=== PATIENT | male | born 1935 | race Caucasian/White ===

== ENCOUNTER 2017-04-06 10:55 | Day surgery (SDC) | payer MEDICARE ==
[~2017-04-06] VITALS: Ht 177.8 cm; Wt 90.2 kg
[~2017-04-06 10:55] MED LIST: ASPI325T6 PO; ASPIRIN 32325 MG/TAB PO; ASPIRIN 81M81 MG/TA2 PO; ASPIRIN E.C. 8181 MG PO; AVAPRO TAB150 MG/TAB PO; CEPHALEXIN500 M1 PO; CIPRO 500MG TA500 MG PO; DIOVAN 160MG160 MG PO; DIOVAN320 MG PO; DULCOLAX S10 MG/SUPP RC; EPA FISH OIL1000 MG PO; FLOMAX 0.40.4 MG/CAP PO; FUROSEMIDE40 MG PO; IRON325 MG PO; LIPITOR 40MG TA40 MG PO; LIPITOR40 MG PO; METFORMIN ER500 MG PO; MILK OF MA400 MG/52 PO; MIRALAX PA17 GM/Dose PO; NORCO 325 MG-51 TAB PO; NOVLOG SQ; PROSCAR 5MG5 MG PO; PYRIDIUM 100MG100 MG PO; SENOKOT S 50 MG1 TAB PO; SLO-NIACIN750 MG PO; TOPROL XL 25MG25 MG PO; TOPROL XL50 MG PO; TYLENOL 325MG325 MG PO; VITAMIN D31000 IU PO
[2017-04-06 12:11] VITALS: BP 149/87; PULSE 66; TEMP 98.5
[2017-04-06] MEDS ORDERED: LASIX 40MG TABL40 MG PO (12:18)
[2017-04-06] MEDS ORDERED: NEURONTIN100 MG/CAP PO (12:19)
[2017-04-06] MEDS ORDERED: VITAMIN D31000 I1 PO (12:20)
[2017-04-06] MEDS ORDERED: VITAMIND3 5000 PO (12:21)
[2017-04-06] MEDS ORDERED: SENOKOT S 50 MG1 TAB PO (12:22)
[2017-04-06 14:15] VITALS: BP 142/69; PULSE 78; TEMP 97.7
[2017-04-06 14:30] VITALS: BP 144/63; PULSE 62
[2017-04-06 14:36] VITALS: BP 148/80; PULSE 67
[2017-04-06] MEDS ORDERED: NORCO 325 MG-51 TAB PO (14:39)
== END 2017-04-06 14:58 | disposition home or self-care (01) ==
LOC: SDCO 10:55
DX: C60.1 Malignant neoplasm of glans penis (principal); I25.10 Atherosclerotic heart disease of native coronary artery without angina pectoris; E11.9 Type 2 diabetes mellitus without complications; E78.5 Hyperlipidemia, unspecified; I10 Essential (primary) hypertension; I48.91 Unspecified atrial fibrillation; Z95.0 Presence of cardiac pacemaker; F17.210 Nicotine dependence, cigarettes, uncomplicated; Z82.49 Family history of ischemic heart disease and other diseases of the circulatory system; Z83.3 Family history of diabetes mellitus; Z80.9 Family history of malignant neoplasm, unspecified; Z98.1 Arthrodesis status; Z86.79 Personal history of other diseases of the circulatory system; Z85.46 Personal history of malignant neoplasm of prostate; Z90.49 Acquired absence of other specified parts of digestive tract
CPT/HCPCS: J0690; J1100; J2405; J2704; J3010; J7030

== ENCOUNTER → 2018-09-26 | Outpatient (REF) ==
[~2018-09-26] MED LIST changes: +LASIX 40MG TABL40 MG PO; +NEURONTIN100 MG/CAP PO; +VITAMIN D31000 I1 PO; +VITAMIND3 5000 PO
== END ==
LOC: ZMSC 17:17
DX: Z01.89 Encounter for other specified special examinations (principal)

== ENCOUNTER 2018-10-04 10:34 | Inpatient (IN) | payer MEDICARE ==
[~2018-10-04] VITALS: Ht 177.8 cm; Wt 95.0 kg
[2018-10-04] VITALS (11 sets, daily range): BP systolic 97–139; BP diastolic 46–73; PULSE 67–92; TEMP 98.3–98.8
[~2018-10-04 10:34] MED LIST changes: +GLUCOPHAGE XR500 M1 PO; -METFORMIN ER500 MG PO
[2018-10-04 12:01] LABS: BASO % 0.3 % (0.0-2.0); EOS % 0.1 % (0-4.0); GRAN # 8.1 (1.4-6.5); GRAN % 77.8 % (42.2-75.2); LYMPH # 1.6 (1.2-3.4); LYMPH % 14.9 % (20.0-51.0); MEAN CELL VOLUME 93 fl (80.0-100.0); MEAN CORPUSCULAR HGB CONC 33 g/dl (33.0-37.0); MEAN PLATELET VOLUME 10.7 fl (7.4-10.4); MONO # 0.6 (0.1-0.6); MONO % 5.7 % (1.7-9.3); PLATELET COUNT 239 K/mm3 (130-400); REDCELL DISTRIBUTION WIDTH-CV 13.7 % (11.5-14.5)
[2018-10-04 12:02] LABS: HEMATOCRIT 19.6 % (42.0-52.0); MEAN CORPUSCULAR HEMOGLOBIN 30 pg (27.0-31.0)
[2018-10-04 12:03] LABS: CALCIUM 8.4 mg/dL (8.4-10.2); CREATININE, serum 1.49 mg/dL (0.66-1.25); POTASSIUM 4.9 mmol/L (3.4-5.0)
[2018-10-04 12:05] LABS: HEMOGLOBIN 6.4 g/dl (13.5-18.0)
--- NOTE | 2018-10-04 12:05 | NUR ---
Dr Castrejon notified of Hgb 6.4.
--- NOTE | 2018-10-04 12:19 | NUR ---
Dr Ludwig notified of consult.
[2018-10-04] MEDS ORDERED: ATACAND 16M16 MG/TAB PO (13:42)
[2018-10-04] MEDS ORDERED: MIRALAX PA17 GM/Dose PO ×2 (13:42→13:43)
[2018-10-04] MEDS ORDERED: MYRBETR50MG PO (13:42)
--- NOTE | 2018-10-04 14:00 | NUR ---
Patient alert and oriented, answers questions appropriately. See assessment. Perirectal abscess draining yellow drainage. PRBC infusing. No other c/o at this time.
--- NOTE | 2018-10-04 18:00 | NUR ---
Patient returns from procedure. Assessment unchanged except gauze and ABD to perirectal abscess. No c/o at this time.
--- NOTE | 2018-10-04 21:00 | NUR ---
Patient in bed, asking to stand at bedside to try to urinate. Is incontinent of urine continuously and at times can void small amounts. Noted LLQ incision dry, no dressing has incision to perineum, gauze has been replaced many times due to being urine soaked. Neither incisions have any bleeding. IV site to right AC with LR infusing at 100cc/hr. Has bilateral lower extremity pitting edema. Is alert and oriented x4. Denies pain. S.O at bedside.
[2018-10-05] VITALS (24 sets, daily range): BP systolic 70–153; BP diastolic 42–107; PULSE 60–102; TEMP 97.5–99.1
--- NOTE | 2018-10-05 00:30 | NUR ---
Patient resting in bed with eyes closed, passing flatus with significant GI bleed odor, checked depends for stool, none noted at this time.
--- NOTE | 2018-10-05 01:10 | NUR ---
Was in rechecking patients B/P and found B/P to be 70/42 P=102 patient easily awakened and turned to back. Recheck of B/P found 87/48 p=90 r=20. Random BS check for reading of 244mg/dl. B/P readings were on left arm. Rechecked B/P at 0125 found to have reading of 82/49 p=90. Notified Dr Castrejon at 0125 of above findings. New order for STAT H&H. Transfuse 1 unit of PRBC's if HGB<8.0. May bolus 1 liter of NS for continued low B/P and if Hgb >8.0. Patient awakens easily and reports feeling "okay". Skin is cool to touch, warm blanket applied.
[2018-10-05 01:52] LABS: HEMOGLOBIN 5.7 g/dl (13.5-18.0)
[2018-10-05 01:53] LABS: HEMATOCRIT 17.4 % (42.0-52.0)
--- NOTE | 2018-10-05 02:00 | NUR ---
Notified Dr Castrejon of patients Hgb=5.7 Hct=17.4. New order to transfuse 2 units of PRBC's now.
--- NOTE | 2018-10-05 03:25 | NUR ---
Initiated first of 2 units of PRBC's at this time. [id number] infusing to right AC site without redness of swelling. Has a second site to left hand, #20 SL'd.
--- NOTE | 2018-10-05 04:00 | NUR ---
Patient tolerating transfusion without complaint of shortness of breath or elevated temperature.
--- NOTE | 2018-10-05 05:00 | NUR ---
Patient more alert at this time. Skin is no longer cool or damp to touch. 1st unit of PRBC's almost complete.
--- NOTE | 2018-10-05 05:37 | NUR ---
Second unit of PRBC's infusing [id number] to Right AC site without redness or swelling. B/P improved.
[2018-10-05 07:55] LABS: CALCIUM 7.4 mg/dL (8.4-10.2); CREATININE, serum 1.15 mg/dL (0.66-1.25); POTASSIUM 4.6 mmol/L (3.4-5.0)
--- NOTE | 2018-10-05 08:00 | NUR ---
Ale Castrejon and Vani here to see patient. See orders.
--- NOTE | 2018-10-05 08:30 | NUR ---
Patient assessment completed, patient is A&O x4. Diminished sounds in BL lungs. +2 pitting edema in BLE. Patient has no complaints of pain at this time and is preparing to be taken for an EGD.
--- NOTE | 2018-10-05 12:56 | NUR ---
Labs drawn from PICC per protocol.
--- NOTE | 2018-10-05 13:05 | NUR ---
SW met with patient and family about discharge planning. Patient lives independently at home with his . Patient's PCP is Dr Savage and he obtains prescriptions from [facility]. Patient does not use any DME or home health services. Patient does have a DPOA and a copy is in the EMR. SW does not anticipate any discharge needs.
[2018-10-05 13:06] LABS: MEAN CELL VOLUME 91 fl (80.0-100.0); MEAN CORPUSCULAR HGB CONC 34 g/dl (33.0-37.0); MEAN PLATELET VOLUME 10.2 fl (7.4-10.4); PLATELET COUNT 153 K/mm3 (130-400); RED BLOOD COUNT 2.12 M/mm3 (4.20-5.60)
[2018-10-05 13:09] LABS: HEMATOCRIT 19.3 % (42.0-52.0); HEMOGLOBIN 6.5 g/dl (13.5-18.0); MEAN CORPUSCULAR HEMOGLOBIN 31 pg (27.0-31.0)
--- NOTE | 2018-10-05 13:17 | NUR ---
Patient resting in bed with at bedside after returning from EGD this morning. PICC line was placed in R upper arm. Patient continues to be incontinent of urine and passed a small amount of dark red stool. Patient progressed to clear liquid diet and tolerated beef broth well with no complaints of nausea or pain. No further needs at this time. Call light within reach.
[2018-10-05 19:11] LABS: BASO % 0.4 % (0.0-2.0); EOS % 0.3 % (0-4.0); GRAN # 7.3 (1.4-6.5); GRAN % 71.3 % (42.2-75.2); LYMPH # 1.5 (1.2-3.4); MEAN CELL VOLUME 92 fl (80.0-100.0); MEAN CORPUSCULAR HGB CONC 34 g/dl (33.0-37.0); MEAN PLATELET VOLUME 10.9 fl (7.4-10.4); MONO # 0.9 (0.1-0.6); MONO % 9.1 % (1.7-9.3); PLATELET COUNT 161 K/mm3 (130-400); RED BLOOD COUNT 1.99 M/mm3 (4.20-5.60); REDCELL DISTRIBUTION WIDTH-CV 15.3 % (11.5-14.5)
[2018-10-05 19:18] LABS: HEMATOCRIT 18.2 % (42.0-52.0); HEMOGLOBIN 6.1 g/dl (13.5-18.0); MEAN CORPUSCULAR HEMOGLOBIN 31 pg (27.0-31.0)
--- NOTE | 2018-10-05 23:08 | NUR ---
Patient incontinent of large dark red stool, devendra cares provided, also inc. of urine. New pad and depends on. Started blood transfusion of single unit of blood to be given tonight. [id number] infusing to right PICC without redness or swelling. Patient is alert and oriented x4. Skin pink, warm and dry. Bilateral lower extremity edema 1+. Lungs are clear bilaterally. Incisions to left lower abd. and perineum dry without drainage. SL to left hand flushed, no redness or swelling noted.
[2018-10-06] VITALS (22 sets, daily range): BP systolic 83–144; BP diastolic 43–65; PULSE 61–82; TEMP 97.3–98.3
--- NOTE | 2018-10-06 01:35 | NUR ---
Transfusion complete. Has small incontinent black stool. Miranda care provided. Sutures to perineum intact.
[2018-10-06 05:20] LABS: HEMATOCRIT 19.3 % (42.0-52.0); HEMOGLOBIN 6.6 g/dl (13.5-18.0)
--- NOTE | 2018-10-06 06:18 | NUR ---
Notified Dr Gottlieb of patients Hgb=6.6 Hct=19.3, new order for 2 units PRBC's to be given.
--- NOTE | 2018-10-06 11:01 | NUR ---
Visited and listened to the families concerns and provided spiritual care.
[2018-10-06 16:28] LABS: HEMATOCRIT 24.7 % (42.0-52.0); HEMOGLOBIN 8.1 g/dl (13.5-18.0)
--- NOTE | 2018-10-06 18:00 | NUR ---
No complaints. Received two units of blood this shift. VSS. Denied dizziness when out of bed with assistance. Appetite good.
[2018-10-06 20:40] LABS: HEMATOCRIT 24.6 % (42.0-52.0); HEMOGLOBIN 8.1 g/dl (13.5-18.0)
--- NOTE | 2018-10-06 22:35 | NUR ---
Completed medication administration and assessment; PT tolerated all cares, toileting, and medications well; PT A&O, BS active x4, LCTA throughout, and able to AMB with SBA; PT denies pain or discomfort at time of assessment; PT denies further needs post toileting and cleansing; PT assisted to a comfortable position in bed with call light within reach; Will continue to monitor. CDA
[2018-10-07 04:12] VITALS: BP 133/51; PULSE 78; TEMP 97.8
--- NOTE | 2018-10-07 06:19 | NUR ---
PT resting well in bed with HOB at 15; PT denies further needs or acute changes at time of rounds; Central line to OYAN with dual lumen accessing and flushing well; All ABX tolerated well; fluids held r/t INT; PT remains in a comfortable position with call light in reach. CDA
[2018-10-07 06:24] LABS: HEMATOCRIT 25.4 % (42.0-52.0); HEMOGLOBIN 8.4 g/dl (13.5-18.0)
--- NOTE | 2018-10-07 06:45 | NUR ---
Report given to BENI Kunz. CDA
[2018-10-07 09:24] VITALS: BP 141/58; PULSE 70; TEMP 97.7
[2018-10-07 13:39] VITALS: BP 133/48; PULSE 70; TEMP 97.9
[2018-10-07 16:32] VITALS: BP 123/43; PULSE 62; TEMP 97.3
--- NOTE | 2018-10-07 18:30 | NUR ---
Stated feels a lot better today. Appetite good. Ambulated in room and halls with standby assist. Tolerated activity well. Had some dark blood in stools.
--- NOTE | 2018-10-07 20:30 | NUR ---
Initial shift assessment done- denies pain- Up walking in room on own- steady on feet- states he is going home tomorrow if hgb is stable- did have a very small black stool earlier this evening-
[2018-10-07 20:43] VITALS: BP 137/46; PULSE 64; TEMP 98.2
[2018-10-07 23:51] VITALS: BP 147/50; PULSE 75; TEMP 98.5
[2018-10-08] VITALS (8 sets, daily range): BP systolic 123–146; BP diastolic 52–72; PULSE 67–75; TEMP 97.2–98.1
--- NOTE | 2018-10-08 06:12 | NUR ---
Quiet night- VSS, no requests at this time
[2018-10-08 06:33] LABS: HEMATOCRIT 23.2 % (42.0-52.0); HEMOGLOBIN 7.5 g/dl (13.5-18.0)
--- NOTE | 2018-10-08 08:27 | NUR ---
Patient alert and oriented, answers questions appropriately. See assessment. LLQ and perirectal incisions with edges well approximated, no redness or drainage noted. VSS. Hemoglobin 7.5 today. Ale Moya and Lucía notified. No other c/o at this time.
--- NOTE | 2018-10-08 13:21 | NUR ---
SW checked with Nurse about patients ambulatory status. Patient is getting around using his cane and is doing well. SW will continue to follow.
[2018-10-08 14:11] LABS: HEMATOCRIT 28.8 % (42.0-52.0); HEMOGLOBIN 9.7 g/dl (13.5-18.0)
--- NOTE | 2018-10-08 23:38 | NUR ---
Shift assessment complete. Patient lying in bed. Denies pain. RUE dbl lumen PICC flushed with 10ml NS, each lumen, per protocol. Patient tolerated well. at bedside.
[2018-10-09 00:09] VITALS: BP 119/57; PULSE 80; TEMP 97.9
[2018-10-09 04:03] VITALS: BP 118/56; PULSE 75; TEMP 98.7
--- NOTE | 2018-10-09 04:03 | NUR ---
Patient in bed, awake for VS. Denies pain. Will continue to monitor.
--- NOTE | 2018-10-09 05:10 | NUR ---
Labs drawn from right PICC line per protocol. Flushed with 20ml NS in red lumen. Patient ambulated to BR with cane and assist x1. Denies pain. at bedside.
--- NOTE | 2018-10-09 07:02 | NUR ---
report from Ludy BAZAN.
[2018-10-09 07:05] LABS: HEMATOCRIT 25.1 % (42.0-52.0); HEMOGLOBIN 8.1 g/dl (13.5-18.0)
[2018-10-09 07:55] VITALS: BP 141/66; PULSE 67; TEMP 97.9
--- NOTE | 2018-10-09 09:15 | NUR ---
DR. SPEARS HERE TODAY. SEE COMPUTER FOR NEW ORDERS.
[2018-10-09 12:17] VITALS: BP 130/57; PULSE 70; TEMP 97.9
[2018-10-09 16:30] VITALS: BP 134/67; PULSE 71; TEMP 97.5
[2018-10-09 19:42] VITALS: BP 132/77; PULSE 72; TEMP 98.1
--- NOTE | 2018-10-09 21:00 | NUR ---
Patient awake, alert and oriented x4. Walked in hallway with spouse Michelle. Denies pain to abdomen. Reports no black stools today. Has a Right PICC that flushes well both lumens. Lungs clear bilaterally. Has healing incision to left abdomen and sutured incision to perineum. Remains incontinent of urine per his normal. Has lower extremity edema, with 1+pitting on the left leg. No requests at this time.
[2018-10-10 03:20] VITALS: BP 124/45; PULSE 71; TEMP 98.4
--- NOTE | 2018-10-10 05:00 | NUR ---
Lab drawn from right PICC. Patient voices no concerns at this time.
[2018-10-10 06:15] LABS: HEMATOCRIT 25.4 % (42.0-52.0); HEMOGLOBIN 8.3 g/dl (13.5-18.0)
--- NOTE | 2018-10-10 06:26 | NUR ---
Patient has had no black stools this shift. Reports resting well. Takes AM med without problem.
--- NOTE | 2018-10-10 07:24 | NUR ---
REPORT FROM NING BAZAN.
[2018-10-10 07:52] VITALS: BP 135/74; PULSE 75; TEMP 97.8
[2018-10-10] MEDS ORDERED: PROTONIX 40MG T40 MG PO (08:42)
--- NOTE | 2018-10-10 10:41 | NUR ---
DR SPEARS IN TO SEE PATIENT PLAN ON DISCHARGE LATER TODAY IF OK WITH DR. RODRIGES. PATEINT INDEPENDENT IN ROOM
[2018-10-10 12:15] VITALS: BP 153/61; PULSE 72; TEMP 97.7
--- NOTE | 2018-10-10 12:49 | NUR ---
SW met with patient and to present IM and verbally discuss the contents. Patient was agreeable and signed the form. Copy provided and original in the chart. Patient is dc home today with spouse, no unmet discharge needs.
--- NOTE | 2018-10-10 13:42 | NUR ---
DISCHARGE INSTRUCTIONS PROVIDED TO PATIENT AND SPOUSE. CALLED PRESCRIPTION TO [facility] IN [place]. PT TAKEN TO FRON BY WHEEL CHAIR BY STAFF.
== END 2018-10-10 13:43 | disposition home or self-care (01) | DRG 908 ==
LOC: SURG 10:34
PROVIDERS: Surgery; ADMIT Urology
PROC: 0WQ Anatomical Regions, General, Repair (ICD-10-PCS; principal; 2018-10-04 16:30)
DX: T81.31XA Disruption of external operation (surgical) wound, not elsewhere classified, initial encounter (principal); D62 Acute posthemorrhagic anemia; Y83.8 Other surgical procedures as the cause of abnormal reaction of the patient, or of later complication, without mention of misadventure at the time of the procedure; Z85.89 Personal history of malignant neoplasm of other organs and systems; Z85.59 Personal history of malignant neoplasm of other urinary tract organ; I25.10 Atherosclerotic heart disease of native coronary artery without angina pectoris; E11.9 Type 2 diabetes mellitus without complications; I10 Essential (primary) hypertension; E78.5 Hyperlipidemia, unspecified
CPT/HCPCS: OP; C1751; C9113; G0378; G0379; J0171; J2370; J2405; J2543; J2704; J3010; J3370; J7030; J7050; J7120; P9016

== ENCOUNTER 2018-10-30 00:59 | Inpatient (IN) | payer MEDICARE ==
[~2018-10-30] VITALS: Ht 177.8 cm; Wt 95.0 kg
[~2018-10-30 00:59] MED LIST changes: +ATACAND 16M16 MG/TAB PO; +MYRBETR50MG PO; +PROTONIX 40MG T40 MG PO
--- NOTE | 2018-10-30 02:47 | NUR ---
Pt. arrived to the floor via stetcher, pt. transferred to the bed with 3 assist. Pt. is A&OX3, assessment complete. INT to rt. hand patent. Pt. reports pain as "pretty bad when I move". Pt. denies needs at this time. Call light within reach.
[2018-10-30 03:10] VITALS: BP 112/53; PULSE 87; TEMP 98.9
[2018-10-30 04:26] LABS: MEAN CELL VOLUME 92 fl (80.0-100.0); MEAN CORPUSCULAR HGB CONC 32 g/dl (33.0-37.0); MEAN PLATELET VOLUME 10.3 fl (7.4-10.4); PLATELET COUNT 240 K/mm3 (130-400); RED BLOOD COUNT 2.62 M/mm3 (4.20-5.60); REDCELL DISTRIBUTION WIDTH-CV 16.5 % (11.5-14.5)
[2018-10-30 04:27] LABS: HEMATOCRIT 24.1 % (42.0-52.0); HEMOGLOBIN 7.7 g/dl (13.5-18.0); MEAN CORPUSCULAR HEMOGLOBIN 29 pg (27.0-31.0)
[2018-10-30 04:36] LABS: CALCIUM 7.8 mg/dL (8.4-10.2); CREATININE, serum 2.04 (0.66-1.25); POTASSIUM 4.3 mmol/L (3.4-5.0)
[2018-10-30 06:51] LABS: ANISOCYTOSIS 1+; BAND 16 % (0-10); LYMPHOCYTE 3 % (20.0-51.0); NEUTROPHILS 76 % (42.0-75.2); PLATELET ESTIMATE NORMAL (NORMAL)
[2018-10-30 07:27] LABS: INR 1.3 (0.8-3.0); PROTHROMBIN TIME 14.7 SECONDS (9.7-12.8)
--- NOTE | 2018-10-30 08:00 | NUR ---
MORPHINE 3MG IV Q3H PRN VORLeigha RODRIGES TO THIS NURSE.
--- NOTE | 2018-10-30 08:00 | NUR ---
SEE ASSESSMENT. PATIENT A&O. VSS. REDNESS AND SWELLING TO LEFT GROIN NOTED. LEFT GROIN HARD UPON PALPATION. LEFT TESTE SWOLLEN. PATIENT STATES THAT HE HAS MILD TO MODERATE PAIN. PATIENT DENIES ANY NEEDS AT THIS TIME. WILL CONTINUE TO MONITOR.
[2018-10-30 08:03] VITALS: BP 123/54; PULSE 86; TEMP 99
--- NOTE | 2018-10-30 08:24 | NUR ---
DR. REBOLLEDO CALLED AND NOTIFIED OF ID CONSULT FOR SEPSIS.
--- NOTE | 2018-10-30 10:01 | NUR ---
JOEL and SW student met with the patient and patient's , Michelle, to discuss discharge plan. The patient lives in [place] with his . He reports needing some assistance with ADLs and has a cane. He states that his is able to help assist him. The patient's PCP is Dr. Cleveland Savage and he receives his medications from either [facility] or through the mail from [employer]. He reports no difficulties obtaining his meds. The patient's DPOA-HC is in EMR. The patient states that he has been in hospitals for the past month, but plans to return home with his upon discharge. No additional needs at this time.
--- NOTE | 2018-10-30 11:29 | NUR ---
First visit from the kiln hand. Freight Router prayed with patient and family. No other needs right now.
[2018-10-30 11:43] VITALS: BP 131/61; PULSE 87; TEMP 98.3
[2018-10-30 16:08] VITALS: BP 114/50; PULSE 86; TEMP 98.6
--- NOTE | 2018-10-30 19:34 | NUR ---
REPORT GIVEN TO BENI BARCLAY.
[2018-10-30 19:51] LABS: HEMATOCRIT 22.5 % (42.0-52.0); HEMOGLOBIN 7.3 g/dl (13.5-18.0)
[2018-10-30 20:00] VITALS: BP 124/52; PULSE 68; PULSE 86; TEMP 97.7
--- NOTE | 2018-10-30 21:00 | NUR ---
Patient incontinent of urine and moderate tarry black stool. Patient was unaware he had a stool. Patient able to stand at bedside for change of his depends and devendra cares given. Assisted back to bed, has bilateral lower leg edema, SCD's placed on patient. Has PICC to right upper arm with NS infusing at 100cc/hr without redness or swelling. Patient is alert and oriented. Spouse Michelle at bedside. Has redness to lower abdomen, pelvic, penis and scrotum. Has firmness noted of lower abdomen and penile area. Has a drsg to right groin, D/I. Patient reports pain with movement, does not want an ice pack.
[2018-10-31] VITALS (323 sets, daily range): BP systolic 101–125; BP diastolic 49–74; PULSE 79–92; TEMP 98.4–101.7; O2SAT 93–100
--- NOTE | 2018-10-31 01:12 | NUR ---
Patient awakened for depends change, incontinent of urine only at this time.
[2018-10-31 06:14] LABS: ALBUMIN 2.4 gm/dL (3.5-5.0); BILIRUBIN,TOTAL 0.7 mg/dL (0.0-1.0); CALCIUM 7.3 mg/dL (8.4-10.2); CREATININE, serum 3.77 (0.66-1.25); MEAN CELL VOLUME 91 fl (80.0-100.0); MEAN CORPUSCULAR HGB CONC 32 g/dl (33.0-37.0); MEAN PLATELET VOLUME 10.6 fl (7.4-10.4); PLATELET COUNT 226 K/mm3 (130-400); POTASSIUM 4.3 mmol/L (3.4-5.0); RED BLOOD COUNT 2.45 M/mm3 (4.20-5.60); REDCELL DISTRIBUTION WIDTH-CV 17.1 % (11.5-14.5)
[2018-10-31 06:18] LABS: HEMATOCRIT 22.4 % (42.0-52.0); HEMOGLOBIN 7.2 g/dl (13.5-18.0); MEAN CORPUSCULAR HEMOGLOBIN 29 pg (27.0-31.0)
--- NOTE | 2018-10-31 06:35 | NUR ---
RECEIVED PHONE ORDER FROM DR RODRIGES FOR CT ABD/PELVIS WITHOUT CONTRAST, ALSO TO TRANSFUSE 1 UNIT OF PRBC'S THIS AM. IS NPO FOR SURGERY TODAY.
[2018-10-31 07:43] LABS: ANISOCYTOSIS 1+; BAND 1 % (0-10); LYMPHOCYTE 3 % (20.0-51.0); NEUTROPHILS 94 % (42.0-75.2); PLATELET ESTIMATE NORMAL (NORMAL)
--- NOTE | 2018-10-31 08:02 | NUR ---
Assessment completed, alert/oriented, vital signs stable/ fever during the night but afefrile at this time and aware, he reports minimal pain at rest/ increased with movement, scrotum and perineal area is very red and swollen and tender to touch, in and recommending removal if his Artifical urinary Sphincter as he beleives this is source of infection/ patietn and agreeable/ consent signed, hemaglbin 7.2 / dark stools noted and creat 3.3 this morning, has ordered 1 unit PRBC to be transfused and and aBdomen CT to eval kidneys, plan of care discussed with patient and his , heart RRR/distal pulses are palpable, lungs CTA/ no reps.difficulty noted, SCD's for VTE, denies other needs or concers at [facility]
--- NOTE | 2018-10-31 09:04 | NUR ---
SW and SW attended clinical rounds. The patient is to have surgery today and then tentatively transfer down to the ICU. SW to continue to follow to ensure a safe discharge.
--- NOTE | 2018-10-31 11:15 | NUR ---
Patient going down to CT scan this time, he will go straight to OR from CT scan, I have showed his family down to the OR waiting room
--- NOTE | 2018-10-31 13:02 | NUR ---
Patient is going straight to ICU #3 after surgery, I have spoke with family and discussed plan of care, I have called report to recieving nurse in ICU, VALIDATION ARCHITECT has moved patient belongings down
--- NOTE | 2018-10-31 14:24 | NUR ---
Report recieved from Kanika BAZAN PACU. Will transfer patient over at this time.
--- NOTE | 2018-10-31 14:35 | NUR ---
Patient arrives to ICU 3 via bed with MOLD PREPARER at side. Settled into room, monitors applied and call light at side. [place] to room. Dressing to abd CDI, dressing to scrotum with sl. drainage-sang, perineal dressing CDI. Mistry to DD with yellow urine.
--- NOTE | 2018-10-31 19:30 | NUR ---
Bedside report given to Marisa BAZAN. IV's verified, surgical dressing assessed with oncoming nurse. Family at bedside, no questions at this time. Requests Sky, provided
--- NOTE | 2018-10-31 19:30 | NUR ---
Bedside report received from BENI Quinn. Patient's family at bedside. Surgical site assessed. Lines and medications reviewed. Transfer of care at this time.
--- NOTE | 2018-10-31 20:00 | NUR ---
Patient has no current orders for VTE from any provider. Patient is post-op. Will check with provider on VTE status.
--- NOTE | 2018-10-31 20:00 | NUR ---
Patient resting in bed at this time. Daughter at the bedside. Assessment complete. Patient has [address] All have small amounts of serosanguinous fluid coming from them. Incisional areas are all reddened and edematous, but patient states that the pain is much less than the previous day, only rating 2/10. Patient does have a small amount of edema in ROSELIA LE, +1. All other findings within normal limits. Patient has no further needs at this time. Will continue to monitor. Call light within reach.
[2018-11-01] VITALS (473 sets, daily range): BP systolic 97–121; BP diastolic 47–68; PULSE 78–87; TEMP 97.8–99.1; O2SAT 92–100
--- NOTE | 2018-11-01 | NUR ---
Patient sleeps between disturbances but is easily awakened by this nurse entering the room. Patient continues to rate pain as 2/10 and continually talks about how much better it is compared to the previous day. Assessment complete. No changes from previous exam. Patient's dressings remain intact with no change in drainage. Vitals remain stable. No further needs at this time. Will continue to monitor. Call light within reach.
--- NOTE | 2018-11-01 04:00 | NUR ---
Patient asleep but awakens to name. Assessment complete and remains WNL. No changes to dressing sites. Continually rates pain 2/10 and does not request any medications. Patient's vitals remain stable. No further needs at this time. Will continue to monitor. Call light within reach.
[2018-11-01 05:22] LABS: MEAN CELL VOLUME 93 fl (80.0-100.0); MEAN CORPUSCULAR HGB CONC 32 g/dl (33.0-37.0); MEAN PLATELET VOLUME 9.8 fl (7.4-10.4); PLATELET COUNT 222 K/mm3 (130-400); RED BLOOD COUNT 2.54 M/mm3 (4.20-5.60); REDCELL DISTRIBUTION WIDTH-CV 17.2 % (11.5-14.5)
[2018-11-01 05:24] LABS: HEMATOCRIT 23.6 % (42.0-52.0); HEMOGLOBIN 7.6 g/dl (13.5-18.0); MEAN CORPUSCULAR HEMOGLOBIN 30 pg (27.0-31.0)
[2018-11-01 05:33] LABS: ALBUMIN 2.4 gm/dL (3.5-5.0); BILIRUBIN,TOTAL 0.6 mg/dL (0.0-1.0); CALCIUM 7.5 mg/dL (8.4-10.2); CREATININE, serum 2.03 (0.66-1.25); TOTAL PROTEIN 5.1 gm/dL (6.4-8.2)
--- NOTE | 2018-11-01 07:30 | NUR ---
Bedside report given to BENI Neri. Lines and medications reviewed. Operative sites assessed and gauze changed. Transfer of care at this time.
--- NOTE | 2018-11-01 07:30 | NUR ---
Bedside report received from BENI Cunningham. Care of patienta assumed at this time.
[2018-11-01 07:39] LABS: ANISOCYTOSIS 1+; BAND 24 % (0-10); EOSINOPHIL 1 % (0-4); HYPOCHROMIA 1+; LYMPHOCYTE 4 % (20.0-51.0); NEUTROPHILS 71 % (42.0-75.2); PLATELET ESTIMATE NORMAL (NORMAL)
[2018-11-01 07:40] LABS: BURR CELLS 1+
--- NOTE | 2018-11-01 08:26 | NUR ---
Patient assessment complete. Patient resting in bed, states he is having some groin pain at this time. Family present. Will continue to monitor.
--- NOTE | 2018-11-01 09:20 | NUR ---
Initial visit; Patient and family thanked Tray Drier Operator for looking in on him, visiting and letting him know when he can expect visits from the [facility]. Tray Drier Operator wished them well and offered God's blessings.
--- NOTE | 2018-11-01 13:14 | NUR ---
Report called to Merna surgical floor RN.
--- NOTE | 2018-11-01 13:50 | NUR ---
BENI Poe, takes patient by wheelchair to surgical room 325. All patient belongings transported with patient. Patient's accompanies patient.
--- NOTE | 2018-11-01 14:00 | NUR ---
PATIENT TRANSFERED INTO ROOM 325 FROM ICU. PATIENT IS A&O AND SITTING UP IN BEDSIDE CHAIR. VSS. HX OF PACER. DENIES PAIN. PATIENT WEARING MESH UNDIES WITH GAUZE DRESSING INPLACE. NATALIE DRAINS X3 DRAINING SMALL AMOUNTS. PATEL TO DEPENDENT DRAINAGE WITH CLEAR YELLOW URINE. IV FLUIDS INFUSING INTO RIGHT UPPER ARM PICC. HEAD TO TOE ASSESSMENT COMPLETE. FAMILY AT BEDSIDE.
[2018-11-01 14:32] LABS: AMORPHOUS CRYSTAL Present /uL; MUCOUS Present /lpf; PH 5 (5-8); SQUAMOUS EPITHELIAL 0-2 /hpf; URINE APPEARANCE Turbid; URINE BACTERIA Rare /hpf; URINE BILIRUBIN Negative (NEGATIVE); URINE BLOOD 3+ (NEGATIVE); URINE COLOR Amber; URINE GLUCOSE Negative (NEGATIVE); URINE KETONE Negative (NEGATIVE); URINE LEUKOCYTE ESTERASE 3+ (NEGATIVE); URINE NITRATE Negative (NEGATIVE); URINE PROTEIN(semi-quant) 2+ (NEGATIVE); URINE RBC >50 /hpf; URINE UROBILINOGEN Negative (NEGATIVE)
[2018-11-01 14:36] LABS: COLLECTION METHOD CATHETER
[2018-11-01 18:15] LABS: HEMATOCRIT 22.8 % (42.0-52.0); HEMOGLOBIN 7.3 g/dl (13.5-18.0)
--- NOTE | 2018-11-01 19:30 | NUR ---
Report received from Merna BAZAN. Family members and in visiting. Patient reports pain to groin intermittent with couph and splinting area helpful. Alert and oriented x 4. Denies needs at this time.
--- NOTE | 2018-11-01 22:00 | NUR ---
Patient rests in bed. IV meds reviewed and given. Percocet offered and given for intermittent groin pain. Pin herman drain to left low abdomin/groin area reinforced with several gauze 4x4s. Scrotum swollen and tender to touch. Mistry cath care done carefully. Declines snack. Ana Paula left at bedside and encouraged to bites with pain med.
--- NOTE | 2018-11-02 01:24 | NUR ---
Rests in bed with eyes closed. Respirations with ease. stays with patient through the night.
--- NOTE | 2018-11-02 03:37 | NUR ---
Patient continues resting soundly on right side with eyes closed. Respirations with ease. awake and up in room. Mistry emptied and draining sonido hazy urine.
[2018-11-02 03:47] VITALS: BP 97/44; PULSE 77; TEMP 97.8
[2018-11-02 07:16] LABS: ALBUMIN 2.2 gm/dL (3.5-5.0); BILIRUBIN,TOTAL 0.1 mg/dL (0.0-1.0); CALCIUM 7.4 mg/dL (8.4-10.2); CREATININE, serum 1.3 (0.66-1.25); POTASSIUM 3.9 mmol/L (3.4-5.0); TOTAL PROTEIN 4.8 gm/dL (6.4-8.2)
[2018-11-02 07:59] LABS: MEAN CELL VOLUME 93 fl (80.0-100.0); MEAN CORPUSCULAR HGB CONC 32 g/dl (33.0-37.0); MEAN PLATELET VOLUME 10.3 fl (7.4-10.4); PLATELET COUNT 249 K/mm3 (130-400); RED BLOOD COUNT 2.41 M/mm3 (4.20-5.60); REDCELL DISTRIBUTION WIDTH-CV 17.5 % (11.5-14.5)
[2018-11-02 08:03] LABS: HEMATOCRIT 22.3 % (42.0-52.0); HEMOGLOBIN 7.1 g/dl (13.5-18.0); MEAN CORPUSCULAR HEMOGLOBIN 29 pg (27.0-31.0)
[2018-11-02 08:27] VITALS: BP 121/60; PULSE 77; TEMP 97.8
[2018-11-02 09:46] LABS: BAND 22 % (0-10); EOSINOPHIL 1 % (0-4); LYMPHOCYTE 11 % (20.0-51.0); NEUTROPHILS 64 % (42.0-75.2)
[2018-11-02 09:47] LABS: ANISOCYTOSIS 1+; PLATELET ESTIMATE NORMAL (NORMAL)
--- NOTE | 2018-11-02 09:55 | NUR ---
Patient resting in bed at this time. Patient assisted into the chair for breakfast earlier this morning. Dr. Castrejon discontinued patient's devendra-anal drain. Drain to lower abdomen/to scrotum continues to be present. Dr. Castrejon stated this is one long drain. Incision next to scrotum drain noted to be draining serosanginous fluid. Scrotum noted to be edematous. No redness or warmth noted. Patient states he is comfortable and doesn't have pain unless he moves around or coughs. PICC to right upper arm noted. Blood return and flushes easily. No redness, swelling, or drainage to site. Mistry catheter present and drains freely.
[2018-11-02 12:32] VITALS: BP 120/51; PULSE 64; TEMP 98.3
--- NOTE | 2018-11-02 13:57 | NUR ---
Patient walking back from the restroom. Stated he had no bowel movement, but is moving air. ABD pads replaced to groin and devendra-anal area. Patient denies pain. Denies any needs.
--- NOTE | 2018-11-02 14:43 | NUR ---
SW and SW student met with the patient and patient's to review discharge plan and to complete the 30 Re-admission Patient Interview. The patient reports that he had to go to [facility] after his last hospital stay here. He states that he still plans to return home with his upon discharge. No additional needs at this time.
[2018-11-02 16:30] VITALS: BP 127/55; PULSE 70; TEMP 97.6
--- NOTE | 2018-11-02 17:50 | NUR ---
Patient is resting in bed at this time. Call light is within reach. Passed on report to Kesha BAZAN.
--- NOTE | 2018-11-02 19:00 | NUR ---
Pt resting. at bedside. Report received from BENI Higuera. No distress noted. Respirations even and unlabored. lungs clear to ausuclation. BS+. Scrotum is edematous and reddened. Pt c/o pain 3/10 in scrotal area. Preethi drain in place. Minimal drainage on pad. Mistry catheter to dependent drainage. Output is yellow with sediment in tubing. No needs noted at this time.
[2018-11-02 20:00] VITALS: BP 130/60; PULSE 83; TEMP 97.9
--- NOTE | 2018-11-02 21:20 | NUR ---
gave pt a bed bath. Care provided to scrotal area. Pads changed and new mesh underwear applied. Repositioned. SCDS replaced.
[2018-11-03] VITALS: BP 120/70; PULSE 78
[2018-11-03 04:00] VITALS: BP 125/44; PULSE 76; TEMP 98.1
--- NOTE | 2018-11-03 07:00 | NUR ---
Report given to Darvin BAZAN. Pt slept periodically throughout the night. Pts pain has been mild <3 with no requests for pain medication. Mistry catheter to dependent drainage with adeqaute output. No further needs noted this AM.
[2018-11-03 07:36] LABS: BASO % 0.2 % (0.0-2.0); EOS # 0.3 (0.0-0.7); GRAN # 3.5 (1.4-6.5); GRAN % 74.3 % (42.2-75.2); LYMPH # 0.6 (1.2-3.4); LYMPH % 13.2 % (20.0-51.0); MEAN CELL VOLUME 91 fl (80.0-100.0); MEAN CORPUSCULAR HGB CONC 33 g/dl (33.0-37.0); MEAN PLATELET VOLUME 9.9 fl (7.4-10.4); MONO # 0.2 (0.1-0.6); MONO % 4.7 % (1.7-9.3); PLATELET COUNT 263 K/mm3 (130-400); RED BLOOD COUNT 2.52 M/mm3 (4.20-5.60); REDCELL DISTRIBUTION WIDTH-CV 17.8 % (11.5-14.5)
[2018-11-03 07:45] LABS: HEMOGLOBIN 7.5 g/dl (13.5-18.0); MEAN CORPUSCULAR HEMOGLOBIN 30 pg (27.0-31.0)
[2018-11-03 07:49] LABS: CALCIUM 7.8 mg/dL (8.4-10.2); CREATININE, serum 0.93 (0.66-1.25); POTASSIUM 3.9 mmol/L (3.4-5.0)
[2018-11-03 09:52] VITALS: BP 133/57; PULSE 73; TEMP 99.1
--- NOTE | 2018-11-03 09:58 | NUR ---
Assessment completed, alert/oriented, vital signs stable, reports pain is much improved and very minimal, minimal drainage from Preethi drains, incision sites look good, gallegos cath patent with yellow / cloudy urine, he is eating and drinking well, ambulating the halls with PT this morning, Hgbn stable at 7.5, present in the room, they deny other needs at this time
[2018-11-03 11:57] VITALS: BP 133/55; PULSE 73; TEMP 98.2
[2018-11-03 17:18] VITALS: BP 127/48; PULSE 69; TEMP 97.1
--- NOTE | 2018-11-03 20:02 | NUR ---
Pt resting in bed. No distress noted. at bedside. Lungs clear to ausculation. BS+. Abdomen soft, nontender. Pericare& catheter care provided. Pad and mesh underwear changed. [place] drain x1 draining scant amount. Scrotum reddened, tender and edematous. Pt denies pain at this time. Stage I pressure ulcer noted to pts coccyx. Activity encourage. Pt was up several times walking today. Pt repositioned in bed. YOAN PICC clamped. Purple line does not flush, but red line flushes freely. No further needs noted. Will continue to monitor.
[2018-11-03 20:08] VITALS: BP 128/60; PULSE 69; TEMP 97.7
[2018-11-04] VITALS (7 sets, daily range): BP systolic 119–137; BP diastolic 46–68; PULSE 60–78; TEMP 97–98.6
--- NOTE | 2018-11-04 05:55 | NUR ---
Pt resting this AM. No complaints of pain. Pt slept a majority of the shift without difficulty. Labs drawn. No needs noted.
[2018-11-04 07:02] LABS: BASO % 0.2 % (0.0-2.0); EOS # 0.3 (0.0-0.7); GRAN # 3.1 (1.4-6.5); GRAN % 72.6 % (42.2-75.2); LYMPH # 0.6 (1.2-3.4); LYMPH % 14.4 % (20.0-51.0); MEAN CELL VOLUME 93 fl (80.0-100.0); MEAN CORPUSCULAR HGB CONC 31 g/dl (33.0-37.0); MONO # 0.2 (0.1-0.6); MONO % 4.9 % (1.7-9.3); PLATELET COUNT 267 K/mm3 (130-400); RED BLOOD COUNT 2.57 M/mm3 (4.20-5.60); REDCELL DISTRIBUTION WIDTH-CV 17.3 % (11.5-14.5)
[2018-11-04 07:03] LABS: HEMATOCRIT 23.9 % (42.0-52.0); HEMOGLOBIN 7.5 g/dl (13.5-18.0); MEAN CORPUSCULAR HEMOGLOBIN 29 pg (27.0-31.0)
[2018-11-04 07:17] LABS: CALCIUM 7.9 mg/dL (8.4-10.2); CREATININE, serum 0.9 (0.66-1.25); POTASSIUM 4.2 mmol/L (3.4-5.0)
--- NOTE | 2018-11-04 11:10 | NUR ---
Assessment completed, alert/oriented, vital signs stable, denies pain or discomfort, incision / drain sites lood good, scant drainange noted from Preethi drain, gallegos patent/ urine is clearing up and good ouput noted, abdomen soft and non-tender, BS+ and has had a couple bowel movmements/ they are dark in color but he is on iron supplement and hemaglobin is stable, heart RRR, lungs CTA, no resp.difficulty noted, present in the room, hospitalist have signed off, Urology planning to pull drain tommorow 11/05/18
--- NOTE | 2018-11-04 23:09 | NUR ---
pt resting in bed A+OX4 with at bedside. pt gallegos draining freely, no kinks. PICC flushes well, blood return noted. VVS. reports no disconfort at this time. call light in reach
--- NOTE | 2018-11-05 03:43 | NUR ---
pt reports no pain throughout night. Mistry draining dependently, free of kinks. pt alseep at this time. call light in reach. at bedside.
[2018-11-05 05:43] VITALS: BP 141/57; PULSE 75; TEMP 99
--- NOTE | 2018-11-05 08:11 | NUR ---
pt had an uneventful night. reported no pain. gallegos drained independently. pt assisted to bathroom x1. PICC flushes well, Blood return noted. no needs at this time. report given to BENI BALBUENA.
[2018-11-05 08:57] VITALS: BP 142/61; PULSE 76; TEMP 98
--- NOTE | 2018-11-05 09:36 | NUR ---
Report received from BENI Gamboa. PT in bed resting, at bedside, denies needs, will continue to monitor.
--- NOTE | 2018-11-05 09:37 | NUR ---
Pt doing well, feelign well, denies pain. Leg bag teaching initiated, transferred to leg bag, demonstration of how to do gallegos care and leg bag care. Gallegos darining yellow clear urine today. Will continue to monitor.
[2018-11-05 11:59] VITALS: BP 122/61; PULSE 79; TEMP 97.8
--- NOTE | 2018-11-05 12:45 | NUR ---
AIV services in and PICC discontinued, discharge instructions given to patient and his , verbalizes understanding
--- NOTE | 2018-11-05 13:30 | NUR ---
discharged per WC
--- NOTE | 2018-11-05 14:11 | NUR ---
JOEL met with patient about discharge today. Patient will discharge home today. JOEL presented IM to patient and . He signed and was provided a copy.
== END 2018-11-05 13:30 | disposition home or self-care (01) | DRG 659 ==
LOC: SURG 00:59 → ICU 02:08 → SURG 02:08 → ICU 10-31 14:55 → SURG 11-01 14:00
PROVIDERS: Internal Medicine; Nurse Practitioner; Physician Assistant; Urology; ADMIT Urology
PROC: 02HV33Z Insertion of Infusion Device into Superior Vena Cava, Percutaneous Approach (ICD-10-PCS; 2018-10-30)
PROC: 0T788DZ Dilation of Bilateral Ureters with Intraluminal Device, Via Natural or Artificial Opening Endoscopic (ICD-10-PCS; principal; 2018-10-31 10:30)
PROC: 0TPD0LZ Removal of Artificial Sphincter from Urethra, Open Approach (ICD-10-PCS; 2018-10-31 10:30)
DX: T83.591A Infection and inflammatory reaction due to implanted urinary sphincter, initial encounter (principal); A41.9 Sepsis, unspecified organism; R65.20 Severe sepsis without septic shock; N17.9 Acute kidney failure, unspecified; K92.1 Melena; N13.30 Unspecified hydronephrosis; Z85.59 Personal history of malignant neoplasm of other urinary tract organ; E11.22 Type 2 diabetes mellitus with diabetic chronic kidney disease; I12.9 Hypertensive chronic kidney disease with stage 1 through stage 4 chronic kidney disease, or unspecified chronic kidney disease; N18.9 Chronic kidney disease, unspecified; R05 Cough; E78.5 Hyperlipidemia, unspecified; Z85.038 Personal history of other malignant neoplasm of large intestine; Z88.8 Allergy status to other drugs, medicaments and biological substances; Z91.040 Latex allergy status; Z91.010 Allergy to peanuts; Z87.891 Personal history of nicotine dependence; D50.0 Iron deficiency anemia secondary to blood loss (chronic)
CPT/HCPCS: 99223; 99231-AI; 99232-AI; 99233-AI; A9284; C1751; C1769; C2617; C9113; J2270; J2405; J2543; J2704; J3010; J3370; J7030; J7050; P9016

== ENCOUNTER 2021-03-18 11:20 | Inpatient (IN) | payer MEDICARE ==
[2021-03-18] VITALS (11 sets, daily range): BP systolic 88–132; BP diastolic 43–78; PULSE 71–81; TEMP 97.9–98.5
[~2021-03-18] VITALS: Ht 177.8 cm; Wt 73.6 kg
[~2021-03-18 11:20] MED LIST changes: +D3-5050000 IU PO; +REFRESH OPTIVE10 M2 OP; +VASCEPA0.5 GM PO; +VITAMIN D32000 IU PO
--- NOTE | 2021-03-18 12:15 | NUR ---
Dr. Castrejon here and will proceed with surgery. Spouse reports that she gave the patient one half glass of water in the waiting room. Walt MAO notified and patient may go to surgery at 1300.
[2021-03-18] MEDS ORDERED: FISH OIL 1000MG1 CAP PO (13:29)
[2021-03-18] MEDS ORDERED: PROTONIX 40MG T40 MG PO (13:29)
--- NOTE | 2021-03-18 16:15 | NUR ---
emergency worker met with patient to discuss discharge plan. Patient lives at home with his Michelle ([phone]) in [place]. present at bedside. Patient reports he is fully independent with activities of daily living and uses no medical equipment to mobilize. Patient's PCP is Dr. Savage and uses [facility] for medications. Reports no trouble affording perscriptions. Patient has DPOA-HC on file. Patient and share 6 children; Rodolfo, Ajay, Danielle, Adnres, Pamella and Clare. Clare ([phone]) is listed as the secondary agent on his DPOA-HC. Patient has no concerns with returning home with his . *Discharge plan: Home*
[2021-03-19] VITALS (7 sets, daily range): BP systolic 83–134; BP diastolic 46–66; PULSE 46–93; TEMP 97–98.3
--- NOTE | 2021-03-19 00:47 | NUR ---
Patient is so confused this morning pulling Mistry out, pulling IV out. Melatonin given it didn't help him . RN called DR Castrejon and got the order of Seroquel 25mg Oral one time dose at 2034.
--- NOTE | 2021-03-19 02:36 | NUR ---
Patient pulled out his IV this morning and he tried to disconnect his gallegos catheter. Patient is very confused. The seroquel oral didn't touch him. Breannas initiated at 0230. Will continue to monitor.
--- NOTE | 2021-03-19 07:57 | NUR ---
Patient sitting up in bed. eating breakfast tray, denies nausea. He denies pain. Patient reoriented as needed. He is unable to state his birthday, he does not know where he is, unawre of president. High fall risk protocol followed. No IV. Mistry to DD. CBI clamped per orders. Pale yellow output. Will monitor closely.
--- NOTE | 2021-03-19 08:35 | NUR ---
Patient up to the chair. assisted with hygiene. continue with high fall risk
--- NOTE | 2021-03-19 13:56 | NUR ---
java web services developer contacted by to speak along side him in regards to education surrounding the differnt options available to the patient. Patient's and daughter (Pamella) present at bedside. During surgery, found evidence of bladder cancer. This coupled with multiple past cancer diagnoses and recent falls leads Dr. Castrejon to the recommendation of a alf facility. Worker spoke on the difference between SNF and AL, home health and private pay care. There are safety concerns noted with home situation. Bathroom is located in the basement and the patient has to climb a set of stair to get to it. Worker verbalizes these concerns to the family. Palliative care consult initiated by Dr. Castrejon. Annelise Connell, nurse Kesha and this social work associate present for meeting. Patient's , daughter, and son present in room with another son on the phone. Palliative care vs. hospice discussed by Annelise. PT/OT ordered. Worker waiting on their recommendations for placement. *Discharge plan: SNF/Swingbed*
--- NOTE | 2021-03-19 14:07 | NUR ---
Family meeting with daughter, Adam, son and , Michelle along with pt. Another son is on the phone. I spoke with group about palliative care what is realizing that decisions will influence where they go from here. Pt has an extensive cancer history already. 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 The family is just hearing this news today and beginning to discuss where they go from here and what their goals are. I did discuss hospice services, where they could be offered, how they are covered, and focus on quality of life and comfort vs aggressive treatment. Pt himself did a lot of talking but seemed confused. Michelle offered little input. Contact information provided.
--- NOTE | 2021-03-19 15:40 | NUR ---
Pt recommends patient placement. Referrals sent to [facility] in [place]. If patient is accepted they will need to do a private transport due to facility staffing shortage. Bautista at [facility] contacted and they do not have a bed available. Luisana [facility] contacted and would like information. They do not currently have bed available but may have one come open on Monday. *Discharge plan: LTC facility*
--- NOTE | 2021-03-19 16:32 | NUR ---
First visit from the front desk lead. No needs right now.
[2021-03-19 18:16] LABS: BASO # 0.1 (0.0-0.2); BASO % 0.5 % (0.0-2.0); EOS # 0.3 (0.0-0.7); EOS % 2.3 % (0-4.0); GRAN # 10.3 (1.4-6.5); GRAN % 86.5 % (42.2-75.2); LYMPH # 0.7 (1.2-3.4); LYMPH % 5.5 % (20.0-51.0); MEAN CELL VOLUME 84 fl (80.0-100.0); MEAN CORPUSCULAR HGB CONC 31 g/dl (33.0-37.0); MEAN PLATELET VOLUME 9.7 fl (7.4-10.4); MONO # 0.5 (0.1-0.6); MONO % 4.1 % (1.7-9.3); PLATELET COUNT 423 K/mm3 (130-400); RED BLOOD COUNT 3.71 M/mm3 (4.20-5.60)
[2021-03-19 18:33] LABS: HEMOGLOBIN 9.7 g/dl (13.5-18.0); MEAN CORPUSCULAR HEMOGLOBIN 26 pg (27.0-31.0)
--- NOTE | 2021-03-19 19:06 | NUR ---
RECEIVED CHANGE OF SHIFT REPORT FROM DAY SHIFT NURSE. PATIENT UP IN CHAIR DURING REPORT, NOT ORIENTED TO PLACE/TIME/EVENT AT THIS TIME. IV BOLUS FLUIDS INFUSING TO LFA IV SITE AT THIS TIME.
[2021-03-19 19:25] LABS: CALCIUM 8.5 mg/dL (8.4-10.2); CREATININE, serum 2.2 (0.66-1.25); POTASSIUM 4.5 mmol/L (3.4-5.0)
[2021-03-19] MEDS ORDERED: LIPITOR 80MG80 MG PO (19:31)
[2021-03-19] MEDS ORDERED: COREG 6.256.25 MG/TA PO (19:33)
--- NOTE | 2021-03-19 20:02 | NUR ---
PATIENT WITH INCREASING RESTLESSNESS, ATTEMPTING TO GET OUT OF CHAIR, WANTING TO "GO SOMEWHERE" INFORMED ONCALL HOSP PROVIDER OF RECENT VS TAKEN AND CURRENT BEHAVIOR STATUS. ORDERS TO BE PUT IN BY PROVIDER.
--- NOTE | 2021-03-19 20:23 | NUR ---
Patient sitting up in chair. Family spend most of the day with patient. Family involved in cares. Social work & pallative cares involved in discharge planning. After long discussion with Dr. Castrejon earlier in the day family needs time to decide what the next step is. Patient had a hypotention this afternoon. physican made aware. medication list changes made. Patient reports patient had not taken medication for a week.(attempted to correct med list with daughter, but still not clear what he is activly taking) Due to hypotention, hospitalist consult called to . Patient remains confused. No aggitation noted. Patient has conversation, but not always clear what he is talking about. Mistry remains to DD with leaking noted. Pericares proivded today as needed. High fall risk follow. Bedside report to ramiro.
--- NOTE | 2021-03-19 21:42 | NUR ---
DISREGARD EDIT TO EKG ORDER; EKG HAS ALREADY BEEN PERFORMED.
[2021-03-20] VITALS (7 sets, daily range): BP systolic 93–125; BP diastolic 44–67; PULSE 69–95; TEMP 96.8–99.6
--- NOTE | 2021-03-20 00:18 | NUR ---
MULTIPLE ATTEMPTS TO TRANSMIT EKG TO [employer] WITHOUT SUCCESS. PRINTED EKG, HANDED TO JOBY TORRES, AND ASSIGNED REPORT IN EPIPHANY TO RHIANNON CÁRDENAS MD FOR REVIEW.
--- NOTE | 2021-03-20 06:49 | NUR ---
CHANGE OF SHIFT REPORT GIVEN TO DAY SHIFT NURSEMAGO RN.
[2021-03-20 06:50] LABS: BASO # 0.1 (0.0-0.2); BASO % 0.6 % (0.0-2.0); EOS # 0.4 (0.0-0.7); GRAN # 8.8 (1.4-6.5); GRAN % 80.7 % (42.2-75.2); LYMPH # 0.9 (1.2-3.4); LYMPH % 8.3 % (20.0-51.0); MEAN CELL VOLUME 84 fl (80.0-100.0); MEAN CORPUSCULAR HGB CONC 31 g/dl (33.0-37.0); MEAN PLATELET VOLUME 9.7 fl (7.4-10.4); MONO # 0.6 (0.1-0.6); MONO % 5.3 % (1.7-9.3); PLATELET COUNT 372 K/mm3 (130-400)
[2021-03-20 06:51] LABS: HEMATOCRIT 27.6 % (42.0-52.0); HEMOGLOBIN 8.6 g/dl (13.5-18.0); MEAN CORPUSCULAR HEMOGLOBIN 26 pg (27.0-31.0)
[2021-03-20 07:01] LABS: CALCIUM 7.8 mg/dL (8.4-10.2); CREATININE, serum 1.9 (0.66-1.25); POTASSIUM 4.5 mmol/L (3.4-5.0)
[2021-03-20 09:20] LABS: COLLECTION METHOD CATHETER
[2021-03-20 09:28] LABS: MUCOUS Present /lpf; PH 6 (5-8); URINE APPEARANCE Turbid; URINE BACTERIA Occasional /hpf; URINE BILIRUBIN Negative (NEGATIVE); URINE BLOOD 2+ (NEGATIVE); URINE COLOR Yellow; URINE GLUCOSE Negative (NEGATIVE); URINE KETONE Negative (NEGATIVE); URINE LEUKOCYTE ESTERASE 2+ (NEGATIVE); URINE NITRATE Positive (NEGATIVE); URINE PROTEIN(semi-quant) 2+ (NEGATIVE); URINE RBC 20-50 /hpf; URINE UROBILINOGEN Negative (NEGATIVE)
--- NOTE | 2021-03-20 10:00 | NUR ---
Patient resting in bed. He has been sleeping soundly. Breakfast ordered. Ua sent to lab. Hygeine provided. Mistry continues to leak. pericares & cath cares given
--- NOTE | 2021-03-20 14:20 | NUR ---
Patient sitting up in chair. He did well with lunch. Patient remains confused. Patient also seems to having some underlying confusion at times. Antiboitcs for UTI per orders. Ivf as ordered. Jarrett to DD with continued leaking noted. Urology aware. & hospitalist rounded. Plan of care reviewed. Patient & his wanting to go home. We again discussed safety concerns. I have spoken on the phone with patient son Gomez and also reviewed plan of care with him. High fall risk followed. Ayaan zhang.
--- NOTE | 2021-03-20 15:36 | NUR ---
Patient provided with hygiene. Gallegos continues to leak, new brief and pericares provided. Hand irrigation provided to see if that will help gallegos output. Sediment noted. Urine cloudy. Patient remains at bedside. high fall risk protocol followed.
--- NOTE | 2021-03-20 19:04 | NUR ---
Patient resting in bed. Did well with dinner. Patient home for the evening. Juan & gumaro severino on assisted by Cnas. Fede craig DD. Bedside report to altagracia
--- NOTE | 2021-03-20 20:23 | NUR ---
PT IN BED. IS ALERT TO SELF. TAKES HS MEDS INCLUDING MELATONIN, SEROQUEL AND TYLENOL. HAS IVF TO LEFT FOREARM, INFUSING WITHOUT PROBLEM. HAS PATEL TO BSD WITH YELLOW URINE, LEAKAGE AROUND PATEL. MILD LOWER LEG EDEMA NOTED. BED ALARM ON.
--- NOTE | 2021-03-21 00:30 | NUR ---
PT REPOSITIONED IN BED. DEPENDS CHANGED D/T URINARY INCONTINENCE AROUND THE PATEL.
[2021-03-21 02:54] VITALS: BP 100/47; PULSE 64; TEMP 97.9
--- NOTE | 2021-03-21 06:00 | NUR ---
PT HAS RESTED WELL THIS SHIFT. TAKES SCHEDULED AM MED WITHOUT PROBLEM.
[2021-03-21 07:22] LABS: MEAN CELL VOLUME 86 fl (80.0-100.0); MEAN CORPUSCULAR HGB CONC 31 g/dl (33.0-37.0); MEAN PLATELET VOLUME 9.9 fl (7.4-10.4); PLATELET COUNT 349 K/mm3 (130-400); RED BLOOD COUNT 2.92 M/mm3 (4.20-5.60); REDCELL DISTRIBUTION WIDTH-CV 17.4 % (11.5-14.5)
[2021-03-21 07:29] LABS: HEMOGLOBIN 7.7 g/dl (13.5-18.0); MEAN CORPUSCULAR HEMOGLOBIN 26 pg (27.0-31.0)
[2021-03-21 07:35] LABS: CALCIUM 7.7 mg/dL (8.4-10.2); CREATININE, serum 1.78 (0.66-1.25)
[2021-03-21 08:45] VITALS: BP 139/66; PULSE 85; TEMP 98.8
[2021-03-21 11:31] VITALS: BP 110/54; PULSE 90; TEMP 98.2
--- NOTE | 2021-03-21 14:57 | NUR ---
Patients states she cannot find his wallet. Patient has several plastic bags in closet, brought in by spouse. Reviewed with that she and I could search through bags to see if we could find wallet. Bag from top shelf opened, a johnson, odorous depends was in bag. told that depends was old and would be thrown away. stated she just brought it from home today and that it was good to keep and use. Opened depends up and showed urine stains in depends. adamant that depends "was still good" and she wanted him to use it. Explained to patient that depends would be disposed of as it was odorous and used. then states she may have patients wallet and home and she doesn't need any more help looking for it.
--- NOTE | 2021-03-21 15:08 | NUR ---
Per request of Vocational Aide, Yamilka KITCHEN and this nurse searched patients room for his wallet. Yamilka KITCHEN, opened hospital patient belongings bag that was in closet and found a pair of shoes with wallet underneath. was at bedside and wallet was immediately handed to her. Patient thanked ARCADE GAMES MECHANIC for finding wallet. Exited room with patients wallet in wifes possession.
[2021-03-21 15:57] VITALS: BP 108/54; PULSE 74; TEMP 97.6
[2021-03-21 20:04] VITALS: BP 124/61; PULSE 81; TEMP 97.6
--- NOTE | 2021-03-21 23:28 | NUR ---
Patient assessed around 2004. Patient disoriented/confused. IV fluids running to left forearm. LS CTA in upper lobes, diminished in lower. Respirations even and unlabored. HRR. Indwelling gallegos catheter patent and draining clear yellow urine via dependent drainage. Redness to coccyx, blanchable. Updated daughter Daxa. She brought things in for patient, put in room. Remains in stapled brown paper back that she brought in. Resting in bed with call light within reach. High fall risk precautions remain in place.
[2021-03-22 00:02] VITALS: BP 130/51; PULSE 77; TEMP 98.3
[2021-03-22 03:57] VITALS: BP 110/56; PULSE 77; TEMP 98.3
--- NOTE | 2021-03-22 06:12 | NUR ---
Patient has been resting in bed with call light within reach. Denies pain and discomfort.
[2021-03-22 07:04] LABS: BASO # 0.1 (0.0-0.2); BASO % 0.4 % (0.0-2.0); EOS # 0.4 (0.0-0.7); EOS % 3.1 % (0-4.0); GRAN # 9.3 (1.4-6.5); GRAN % 83.3 % (42.2-75.2); LYMPH # 0.8 (1.2-3.4); LYMPH % 7.4 % (20.0-51.0); MEAN CELL VOLUME 85 fl (80.0-100.0); MEAN CORPUSCULAR HGB CONC 31 g/dl (33.0-37.0); MONO # 0.6 (0.1-0.6); MONO % 5.4 % (1.7-9.3); PLATELET COUNT 354 K/mm3 (130-400); RED BLOOD COUNT 2.95 M/mm3 (4.20-5.60); REDCELL DISTRIBUTION WIDTH-CV 17.4 % (11.5-14.5)
[2021-03-22 07:13] VITALS: BP 107/44; PULSE 73; TEMP 99.3
[2021-03-22 07:23] LABS: HEMOGLOBIN 7.8 g/dl (13.5-18.0); MEAN CORPUSCULAR HEMOGLOBIN 26 pg (27.0-31.0)
[2021-03-22 07:24] LABS: CALCIUM 7.9 mg/dL (8.4-10.2); CREATININE, serum 1.5 (0.66-1.25)
--- NOTE | 2021-03-22 08:45 | NUR ---
Patient up in chair. Brief wet. Gallegos continues to leak. Fresh linens, gallegos cares & pericares provided. Patient ate some of his breakfast, but reports low appetite today. He worked with therapy. Hospitalsit rounded. Iv to INT. to round around 1230. Working with social work on discharge planning. She is contacting [facility].
--- NOTE | 2021-03-22 10:27 | NUR ---
Referral sent to [facility] in [place] for SNF placement. Worker spoke with the Anna and she will be dropping off the application this morning. Dr. Castrejon requests (1) family member present for today's meeting with him. Worker reached out to daughter Pamella and she states she will be present. Clare states she has been reaching out to different home health agencies and that hospice is not out of the question. Worker reiterated to [facility] that Dr. Castrejon and PT/OT both recommend that the patient be placed in a facility for senior care care. Worker strongly suggests that the patient go to [facility] for SNF to begin with if they are wanting to take him home. precision printing worker will follow.
[2021-03-22 11:28] VITALS: BP 128/60; PULSE 75; TEMP 98
[2021-03-22] MEDS ORDERED: MACROBID 1100 MG/CAP PO (13:17)
[2021-03-22 13:24] VITALS: BP 128/60; PULSE 75; TEMP 98
--- NOTE | 2021-03-22 13:28 | NUR ---
Carlin from [facility] accepts patient on this day for SNF at 1315. Family rebecca Can accepts to transfer patient by private vehicle. Nursing staff, physician and family notified.
--- NOTE | 2021-03-22 14:30 | NUR ---
Patient ready for discharge. rounded. Plan of care reviewed. [place] social serives assist with discharge. Patient daughter & taking him to [place]. All belongings with family. Int DC. Patient assisted with hygiene-new brief on. Mistry care provided. He did well with lunch. Report called to [place], all questions answered.
== END 2021-03-22 15:23 | DRG 669 ==
LOC: SDCO 11:20 → SURG 15:23 → SDCO 03-19 16:46 → SURG 03-19 16:47
PROVIDERS: Physician Assistant; Student in an Organized Health Care Education/Training Program; ADMIT Urology
PROC: 0TBB8ZZ Excision of Bladder, Via Natural or Artificial Opening Endoscopic (ICD-10-PCS; principal; 2021-03-18 13:00)
DX: C67.9 Malignant neoplasm of bladder, unspecified (principal); N13.30 Unspecified hydronephrosis; N17.9 Acute kidney failure, unspecified; N30.01 Acute cystitis with hematuria; I95.9 Hypotension, unspecified; N18.9 Chronic kidney disease, unspecified; E78.5 Hyperlipidemia, unspecified; I12.9 Hypertensive chronic kidney disease with stage 1 through stage 4 chronic kidney disease, or unspecified chronic kidney disease; E11.22 Type 2 diabetes mellitus with diabetic chronic kidney disease; B96.20 Unspecified Escherichia coli [E. coli] as the cause of diseases classified elsewhere; G31.84 Mild cognitive impairment of uncertain or unknown etiology; K27.9 Peptic ulcer, site unspecified, unspecified as acute or chronic, without hemorrhage or perforation; D64.9 Anemia, unspecified; E86.1 Hypovolemia; Z79.84 Long term (current) use of oral hypoglycemic drugs
CPT/HCPCS: OP; 99223; 99232-AI; C1769; G0378; J0696; J2405; J2543; J7030